=== PATIENT | female | born 1935 ===

== ENCOUNTER 2017-08-02 16:50 | Inpatient (IN) | payer MEDICARE ==
[~2017-08-02] VITALS: Ht 144.8 cm; Wt 50.8 kg
[2017-08-02] MEDS ORDERED: MAGNESIUM HYDROXIDE 30 ML LIQUID UDC PO PRN ×2 (17:00→20:00)
[2017-08-02] MEDS ORDERED: ENOXAPARIN SODIUM 30 MG/0.3 ML DISP.SYRIN SQ SCH (17:00)
[2017-08-02] MEDS ORDERED: ZOLP5TAB2 PO (17:38)
[2017-08-02] MEDS ORDERED: ENOX40DI SQ (17:38)
[2017-08-02] MEDS ORDERED: MAGN400O6 PO (17:38)
[2017-08-02] MEDS ORDERED: SIMV20TA6 PO (17:38)
[2017-08-02] MEDS ORDERED: DOCU-141 PO (17:38)
[2017-08-02] MEDS ORDERED: ACET-73 PO (17:38)
[2017-08-02] MEDS ORDERED: TRAM50TA2 PO (17:38)
[2017-08-02] MEDS ORDERED: AMLO2.5T PO (17:38)
--- NOTE | 2017-08-02 19:45 | NUR ---
Received pt in bed, appearing to be asleep but easily arousable to verbal stimuli and light touch. No acute distress noted. Denies pain or discomfort at this time. All safety measures and fall precautions maintained. Call light and all personal belongings within reach. Will continue to monitor.
[2017-08-02 19:59] VITALS: BP 130/73
[2017-08-02] MEDS ORDERED: ZOLPIDEM 5 MG TABLET PO PRN (20:00)
[2017-08-02] MEDS ORDERED: TRAMADOL HCL 50 MG TABLET PO PRN (20:00)
[2017-08-02] MEDS ORDERED: ACETAMINOPHEN ES 500 MG TABLET PO PRN (20:00)
[2017-08-02] MEDS: SIMVASTATIN 20 MG TABLET PO SCH (20:47)
[2017-08-02] MEDS: DOCUSATE SODIUM 100 MG CAPSULE PO SCH (20:47)
[2017-08-02] MEDS: ENOXAPARIN SODIUM 40 MG/0.4 ML DISP.SYRIN SQ SCH (20:51)
[2017-08-02] MEDS ORDERED: ENOXAPARIN SODIUM 40 MG/0.4 ML DISP.SYRIN SQ SCH (21:00)
[2017-08-02] MEDS ORDERED: SIMVASTATIN 20 MG TABLET PO SCH (21:00)
[2017-08-02] MEDS ORDERED: DOCUSATE SODIUM 100 MG CAPSULE PO SCH (21:00)
[2017-08-03 07:10] LABS: BASOPHILS % (AUTO) 0.6 % (0.0-2.0); EOSINOPHILS # (AUTO) 0.1 K/uL (0.0-0.7); EOSINOPHILS % (AUTO) 1.6 % (0.0-7.0); HEMATOCRIT 31.7 % (36.7-47.1); HEMOGLOBIN 10.9 g/dL (12.5-16.3); LYMPHOCYTES # (AUTO) 1.5 K/uL (20.0-40.0); LYMPHOCYTES % (AUTO) 21.7 % (20.5-51.5); MEAN CORPUSCULAR HEMOGLOBIN 29.9 uug (23.8-33.4); MEAN CORPUSCULAR HGB CONC 34 g/dL (32.5-36.3); MEAN CORPUSCULAR VOLUME 87.3 fL (73.0-96.2); MONOCYTES # (AUTO) 0.9 K/uL (2.0-10.0); MONOCYTES % (AUTO) 12.6 % (0.0-11.0); NEUTROPHILS # (AUTO) 4.4 K/uL (1.8-8.9); NEUTROPHILS % (AUTO) 63.5 % (38.5-71.5); PLATELET COUNT (AUTO) 228 K/uL (152-348); RED BLOOD CELL COUNT(AUTO) 3.63 MIL/uL (4.06-5.63)
[2017-08-03 07:30] VITALS: BP 117/62
[2017-08-03 07:42] LABS: CARBON DIOXIDE 30 mmol/L (21-32); CHLORIDE 98 mmol/L (98-107); CHOLESTEROL 145 mg/dL (<200); CREATININE 0.8 mg/dL (0.6-1.3); GLUCOSE 102 mg/dL (74-106); HDL CHOLESTEROL 65 mg/dL (40-60); MAGNESIUM 2.2 mg/dL (1.8-2.4); PHOSPHOROUS 3.7 mg/dL (2.5-4.9); TRIGLYCERIDES 49 MG/DL (30-150); UREA NITROGEN, BLOOD 15 mg/dL (7-18)
[2017-08-03] MEDS: AMLODIPINE 2.5 MG TABLET PO SCH (08:57)
[2017-08-03] MEDS: TRAMADOL HCL 50 MG TABLET PO PRN (08:57)
[2017-08-03] MEDS ORDERED: AMLODIPINE 2.5 MG TABLET PO SCH (09:00)
--- NOTE | 2017-08-03 18:44 | NUR ---
pt stable throughout the day. given tylenol for pain. no signs of acute distress during shfit. no new orders. will endorse to night stocker nurse.
--- NOTE | 2017-08-03 19:45 | NUR ---
Received pt on bed alert, awake and oriented x3. Able to make needs known. Pleasant, calm and cooperative to care. No apparent distress noted. No complaints of pain or discomfort. All due meds given as ordered and well tolerated. Vital signs stable. Safety and fall precautions observed and maintained. Call light within reach. All needs met
[2017-08-03 20:37] VITALS: BP 131/77
[2017-08-03] MEDS: DOCUSATE SODIUM 100 MG CAPSULE PO SCH (20:51)
[2017-08-03] MEDS: SIMVASTATIN 20 MG TABLET PO SCH (20:51)
[2017-08-03] MEDS: ENOXAPARIN SODIUM 40 MG/0.4 ML DISP.SYRIN SQ SCH (20:55)
[2017-08-04] MEDS: TRAMADOL HCL 50 MG TABLET PO PRN ×2 (00:07→13:38)
[2017-08-04] MEDS ORDERED: METHYL SALICYLATE/MENTHOL CREAM 28 GM TUBE TOP PRN ×2 (00:30→07:15)
[2017-08-04 07:30] VITALS: BP 115/76
[2017-08-04] MEDS: AMLODIPINE 2.5 MG TABLET PO SCH (08:14)
--- NOTE | 2017-08-04 19:50 | NUR ---
Received pt in bed, AAO x 4 on her ipad. No acute distress noted. Verbally responsive and able to make needs known. Denies pain or discomfort at this time. All safety measures and fall precautions maintained. Call light and all personal belongings within reach. Will continue to monitor.
[2017-08-04] MEDS: DOCUSATE SODIUM 100 MG CAPSULE PO SCH (21:01)
[2017-08-04] MEDS: SIMVASTATIN 20 MG TABLET PO SCH (21:01)
[2017-08-04] MEDS: ENOXAPARIN SODIUM 40 MG/0.4 ML DISP.SYRIN SQ SCH (21:02)
[2017-08-04 22:00] VITALS: BP 107/50
[2017-08-04] MEDS: ZOLPIDEM 5 MG TABLET PO PRN (22:18)
--- NOTE | 2017-08-05 07:40 | NUR ---
Received pt in bed, appearing to be asleep. No acute distress noted. Denies pain or discomfort at this time. All safety measures and fall precautions maintained. Call light and all personal belongings within reach. Will continue to monitor.
[2017-08-05 08:03] VITALS: BP 135/77
[2017-08-05] MEDS: AMLODIPINE 2.5 MG TABLET PO SCH (08:07)
[2017-08-05] MEDS: TRAMADOL HCL 50 MG TABLET PO PRN (09:13)
[2017-08-05 19:30] VITALS: BP 158/66
[2017-08-05] MEDS: DOCUSATE SODIUM 100 MG CAPSULE PO SCH (21:00)
[2017-08-05] MEDS: ENOXAPARIN SODIUM 40 MG/0.4 ML DISP.SYRIN SQ SCH (21:06)
[2017-08-05] MEDS: SIMVASTATIN 20 MG TABLET PO SCH (21:08)
[2017-08-05] MEDS: ZOLPIDEM 5 MG TABLET PO PRN (21:08)
[2017-08-05] MEDS ORDERED: LOPERAMIDE HCL 2 MG CAPSULE PO PRN (21:15)
--- NOTE | 2017-08-06 06:30 | NUR ---
Pt alert awake in no acute distress. Able to void in diaper without difficulty. No increased diarrhea present. No s/s of infection to surgical site. Able to make needs known. Will continue to monitor. Call light placed within reach.
[2017-08-06 07:09] VITALS: BP 108/60
--- NOTE | 2017-08-06 07:30 | NUR ---
Received pt in bed,awake. No acute distress noted. Denies pain or discomfort at this time. All safety measures and fall precautions maintained. Call light and all personal belongings within reach. Will continue to monitor.
[2017-08-06] MEDS: AMLODIPINE 2.5 MG TABLET PO SCH (08:18)
[2017-08-06] MEDS: TRAMADOL HCL 50 MG TABLET PO PRN (13:21)
[2017-08-06] MEDS: DOCUSATE SODIUM 100 MG CAPSULE PO SCH (21:05)
[2017-08-06] MEDS: ENOXAPARIN SODIUM 40 MG/0.4 ML DISP.SYRIN SQ SCH (21:05)
[2017-08-06] MEDS: SIMVASTATIN 20 MG TABLET PO SCH (21:05)
[2017-08-06 21:09] VITALS: BP 116/58
[2017-08-06] MEDS: ZOLPIDEM 5 MG TABLET PO PRN (23:16)
[2017-08-07 07:12] VITALS: BP 135/72
--- NOTE | 2017-08-07 07:30 | NUR ---
Received pt in bed, appearing to be asleep. No acute distress noted. . All safety measures and fall precautions maintained. Call light and all personal belongings within reach. Will continue to monitor.
[2017-08-07] MEDS: AMLODIPINE 2.5 MG TABLET PO SCH (08:14)
[2017-08-07] MEDS: ACETAMINOPHEN 325 MG TABLET PO PRN ×2 (09:40→15:14)
--- NOTE | 2017-08-07 11:00 | NUR ---
I agree Addendum: 08/07/17 at 1100 by REHAN SCHNEIDER OT Amended: Links added.
--- NOTE | 2017-08-07 11:01 | NUR ---
I agree Addendum: 08/07/17 at 1101 by REHAN SCHNEIDER OT Amended: Links added.
[2017-08-07] MEDS: GUAIFENESIN/DEXTROMETHORPHAN 5 ML UDC PO PRN ×2 (15:14→21:22)
--- NOTE | 2017-08-07 20:00 | NUR ---
RECEIVED PATIENT AWAKE IN BED. A/O X4. DENIES PAIN OR DISCOMFORT. NO RESP. DISTRESS NOTED. ON RA SATING WELL. DRESSING NOTED TO RIGHT HIP, C/D/I. PATIENT AMBULATES WELL TO BATHROOM WITH FWW. VS WNL. BED ALARM ON. CALL LIGHT IN REACH. ALL NEEDS ATTENDED. WILL CONTINUE TO MONITOR.
[2017-08-07] MEDS: DOCUSATE SODIUM 100 MG CAPSULE PO SCH (20:26)
[2017-08-07] MEDS: SIMVASTATIN 20 MG TABLET PO SCH (20:26)
[2017-08-07] MEDS: ENOXAPARIN SODIUM 40 MG/0.4 ML DISP.SYRIN SQ SCH (20:29)
[2017-08-07 20:53] VITALS: BP 141/67
[2017-08-07] MEDS: ZOLPIDEM 5 MG TABLET PO PRN (22:26)
[2017-08-08] MEDS: TRAMADOL HCL 50 MG TABLET PO PRN ×3 (00:42→22:48)
[2017-08-08] MEDS: ACETAMINOPHEN 325 MG TABLET PO PRN ×3 (03:43→15:12)
[2017-08-08] MEDS: GUAIFENESIN/DEXTROMETHORPHAN 5 ML UDC PO PRN ×3 (05:32→21:22)
--- NOTE | 2017-08-08 06:37 | NUR ---
PATIENT AWAKE IN BED. SLEPT AT INTERVALS. DENIES PAIN OR ANY NEED FOR PAIN MEDICATION AT THIS TIME. ICE BAG APPLIED TO RIGHT KNEE REQUESTED PER PATIENT. BED ALARM ON. CALL LIGHT IN REACH. ALL NEEDS ATTENDED. WILL CONTINUE TO MONITOR.
[2017-08-08 08:00] VITALS: BP 116/53
[2017-08-08] MEDS: AMLODIPINE 2.5 MG TABLET PO SCH (08:10)
--- NOTE | 2017-08-08 14:20 | NUR ---
PT IS WITH HER FAMILY ,NO C/O PAIN NOTED V/S ARE STABLE
[2017-08-08] MEDS ORDERED: BISACODYL 5 MG TABLET.DR PO PRN (19:30)
--- NOTE | 2017-08-08 19:45 | NUR ---
received pt lying comfortably with HOB elevated, alert, awake and oriented x3 with no signs/symptoms of distress. Denies pain. Complained of cough, PRN robitussin will be given. Side rails up x2. Bed locked and in lowest position. Call light within reach. All needs attended.
[2017-08-08] MEDS: DOCUSATE SODIUM 100 MG CAPSULE PO SCH (20:05)
[2017-08-08] MEDS: SIMVASTATIN 20 MG TABLET PO SCH (20:05)
[2017-08-08] MEDS: ENOXAPARIN SODIUM 40 MG/0.4 ML DISP.SYRIN SQ SCH (20:40)
[2017-08-08 21:41] VITALS: BP 130/70
[2017-08-09] MEDS: ACETAMINOPHEN 325 MG TABLET PO PRN ×2 (00:45→10:10)
[2017-08-09] MEDS: TRAMADOL HCL 50 MG TABLET PO PRN ×3 (05:47→20:41)
--- NOTE | 2017-08-09 06:05 | NUR ---
patient slept well throughout the shift with no apparent distress noted. Complained of left hip pain, medicated with tramadol PRN, verbalization of relief noted. No SOB noted. Assisted to the bathroom as needed. Kept clean, dry and comfortable. Call light within reach. All needs attended.
[2017-08-09 07:27] LABS: CARBON DIOXIDE 28 mmol/L (21-32); CHLORIDE 101 mmol/L (98-107); GLUCOSE 96 mg/dL (74-106); POTASSIUM 3.6 mmol/L (3.5-5.1); UREA NITROGEN, BLOOD 15 mg/dL (7-18)
[2017-08-09 07:29] LABS: BASOPHILS # (AUTO) 0.1 K/uL (0.0-8.0); BASOPHILS % (AUTO) 1.4 % (0.0-2.0); EOSINOPHILS # (AUTO) 0.2 K/uL (0.0-0.7); EOSINOPHILS % (AUTO) 3.4 % (0.0-7.0); HEMATOCRIT 31.8 % (31.2-41.9); HEMOGLOBIN 10.8 g/dL (10.9-14.3); LYMPHOCYTES # (AUTO) 0.9 K/uL (20.0-40.0); LYMPHOCYTES % (AUTO) 18.1 % (20.5-51.5); MEAN CORPUSCULAR HEMOGLOBIN 29.7 uug (24.7-32.8); MEAN CORPUSCULAR HGB CONC 34 g/dL (32.3-35.6); MEAN CORPUSCULAR VOLUME 87.5 fL (75.5-95.3); MONOCYTES # (AUTO) 0.8 K/uL (2.0-10.0); MONOCYTES % (AUTO) 15.7 % (0.0-11.0); NEUTROPHILS % (AUTO) 61.4 % (38.5-71.5); PLATELET COUNT (AUTO) 277 K/uL (179-408); RED BLOOD CELL COUNT(AUTO) 3.63 MIL/uL (3.63-4.92); WHITE BLOOD COUNT (AUTO) 4.8 K/uL (3.8-11.8)
--- NOTE | 2017-08-09 08:07 | NUR ---
pt refused the chest x ray md made aware.
[2017-08-09] MEDS: AMLODIPINE 2.5 MG TABLET PO SCH (08:08)
[2017-08-09 08:33] LABS: BASOPHILS % (MANUAL) 1 % (0-2); EOSINOPHILS % (MANUAL) 3 % (0-8); LYMPHOCYTES % (MANUAL) 18 % (20-40); MONOCYTES % (MANUAL) 16 % (2-10); NEUTROPHILS % (MANUAL) 62 % (42-75)
[2017-08-09 08:43] VITALS: BP 132/62
[2017-08-09] MEDS: GUAIFENESIN/DEXTROMETHORPHAN 5 ML UDC PO PRN (15:08)
--- NOTE | 2017-08-09 16:53 | NUR ---
INTERDISCIPLINARY TEAM CONFERENCE
--- NOTE | 2017-08-09 20:00 | NUR ---
Received pt lying on bed alert, awake and oriented x3. Able to make needs known. No acute distress noted. Complained of right hip pain, PRN tramadol given. Kept clean, dry and comfortable. Call light within reach. Safety and fall precautions observed and maintained. All needs attended. Will continue to monitor.
--- NOTE | 2017-08-09 20:00 | NUR ---
Received pt sitting on a wheelchair with family at bedside, alert, awake and oriented x3. Pleasant, calm and cooperative to care. No acute distress noted. No SOB. Assisted to the bathroom as needed. encouraged to verbalize needs and concerns. Call light within reach. All needs attended. Addendum: 08/09/17 at 2203 by ANEUDY DEL VALLE RN Documentation not for this pt.
[2017-08-09 20:31] VITALS: BP 136/69
[2017-08-09] MEDS: SIMVASTATIN 20 MG TABLET PO SCH (20:40)
[2017-08-09] MEDS: DOCUSATE SODIUM 100 MG CAPSULE PO SCH (20:40)
[2017-08-09] MEDS: ENOXAPARIN SODIUM 40 MG/0.4 ML DISP.SYRIN SQ SCH (20:44)
[2017-08-09] MEDS ORDERED: FLUTICASONE/SALMETEROL 250/50 INHALER INH SCH (21:00)
--- NOTE | 2017-08-09 21:00 | NUR ---
Pt refused bowel regimen, dulcolax PRN and stated "I wanna take it tomorrow morning 'cause I dont wanna get up during the night just to go to the bathroom". Explained risks and benefits but still pt refused. Will endorse to day shift nurse.
[2017-08-09] MEDS: predniSONE 20 MG TABLET PO SCH (21:27)
[2017-08-10] MEDS ORDERED: IPRATROPIUM/ALBUTEROL SULFATE 14.7 GM INHALER INH SCH
[2017-08-10] MEDS: TRAMADOL HCL 50 MG TABLET PO PRN ×3 (00:26→20:12)
[2017-08-10] MEDS: IPRATROPIUM BROMIDE 0.5 MG/2.5 ML NEBU NEB SCH ×5 (00:55→19:30)
[2017-08-10] MEDS: ALBUTEROL SULFATE 2.5 MG/ 0.5 ML NEBU NEB SCH ×5 (00:55→19:30)
--- NOTE | 2017-08-10 00:56 | NUR ---
Pt awake. No respiratory distress noted. Pt refused HHN tx. JOHN Salinas notified.
[2017-08-10] MEDS: BISACODYL 10 MG SUPP.RECT RC PRN (07:37)
[2017-08-10] MEDS: predniSONE 20 MG TABLET PO SCH (08:09)
[2017-08-10] MEDS: AMLODIPINE 2.5 MG TABLET PO SCH (08:09)
[2017-08-10] MEDS: FLUTICASONE/VILANTEROL 1 EACH BLST.W.DEV INH SCH (08:52)
[2017-08-10 08:55] VITALS: BP 128/76
[2017-08-10] MEDS: GUAIFENESIN/DEXTROMETHORPHAN 5 ML UDC PO PRN (16:19)
--- NOTE | 2017-08-10 20:00 | NUR ---
Received pt lying on bed alert, awake and oriented x3 with no signs/symptoms of distress. Complained of right hip pain, PRN tramadol given. Kept clean, dry and comfortable. Assisted to the bathroom as needed. Call light within reach. Safety and fall precautions observed and maintained. encouraged to verbalize needs and concerns and to call for assistance if needed. All needs attended. Will continue to monitor.
[2017-08-10] MEDS: SIMVASTATIN 20 MG TABLET PO SCH (20:12)
[2017-08-10] MEDS: DOCUSATE SODIUM 100 MG CAPSULE PO SCH (20:12)
[2017-08-10 20:47] VITALS: BP 156/70
[2017-08-10] MEDS: ENOXAPARIN SODIUM 40 MG/0.4 ML DISP.SYRIN SQ SCH (20:53)
[2017-08-11] MEDS: TRAMADOL HCL 50 MG TABLET PO PRN ×4 (00:35→20:33)
[2017-08-11] MEDS: IPRATROPIUM BROMIDE 0.5 MG/2.5 ML NEBU NEB SCH ×4 (00:48→18:52)
[2017-08-11] MEDS: ALBUTEROL SULFATE 2.5 MG/ 0.5 ML NEBU NEB SCH ×4 (00:48→18:52)
[2017-08-11] MEDS: ZOLPIDEM 5 MG TABLET PO PRN (01:59)
[2017-08-11] MEDS: predniSONE 20 MG TABLET PO SCH (08:06)
[2017-08-11] MEDS: AMLODIPINE 2.5 MG TABLET PO SCH (08:06)
[2017-08-11] MEDS: FLUTICASONE/VILANTEROL 1 EACH BLST.W.DEV INH SCH (08:07)
[2017-08-11] MEDS: GUAIFENESIN/DEXTROMETHORPHAN 5 ML UDC PO PRN ×2 (08:44→20:32)
[2017-08-11 08:58] VITALS: BP 123/70
[2017-08-11] MEDS: BISACODYL 10 MG SUPP.RECT RC PRN (11:06)
--- NOTE | 2017-08-11 19:50 | NUR ---
RECEIVED PATIENT AWAKE IN BED WATCHING TV. A/O X4. VERY PLEASANT WHEN APPROACHED. C/O MILD DISCOMFORT IN RIGHT HIP, BUT DENIES THE NEED FOR ANY PAIN MEDICATION AT THIS TIME. VS WNL. NO RESP. DISTRESS NOTED. BED ALARM ON. CALL LIGHT IN REACH. ALL NEEDS ATTENDED. WILL CONTINUE TO MONITOR AND ASSESS.
[2017-08-11 20:00] VITALS: BP_SYST 110; BP_SYST 124; BP_DIAS 60; BP_DIAS 77
[2017-08-11] MEDS: ENOXAPARIN SODIUM 40 MG/0.4 ML DISP.SYRIN SQ SCH (20:32)
[2017-08-11] MEDS: DOCUSATE SODIUM 100 MG CAPSULE PO SCH (20:33)
[2017-08-11] MEDS: SIMVASTATIN 20 MG TABLET PO SCH (20:34)
[2017-08-12] MEDS: TRAMADOL HCL 50 MG TABLET PO PRN (00:25)
[2017-08-12] MEDS: IPRATROPIUM BROMIDE 0.5 MG/2.5 ML NEBU NEB SCH ×5 (01:30→19:39)
[2017-08-12] MEDS: ALBUTEROL SULFATE 2.5 MG/ 0.5 ML NEBU NEB SCH ×5 (01:30→19:39)
[2017-08-12] MEDS: ZOLPIDEM 5 MG TABLET PO PRN (02:15)
--- NOTE | 2017-08-12 02:15 | NUR ---
PATIENT AWAKE IN BED, UNABLE TO SLEEP. REQUESTING SLEEPING PILL. PATIENT GIVEN AMBIEN 5MG PO PRN FOR SLEEP. WILL CONTINUE TO MONITOR AND ASSESS.
--- NOTE | 2017-08-12 03:15 | NUR ---
PATIENT ASLEEP. RESTING WELL. NO S/S OF ANY SOB. CALL LIGHT IN REACH. BED ALARM ON. WILL CONTINUE TO MONITOR AND ASSESS.
--- NOTE | 2017-08-12 06:35 | NUR ---
PATIENT ASLEEP IN BED. RESTING WELL. NO S/S OF ANY PAIN OR DISCOMFORT. NO RESP. DISTRESS NOTED. CALL LIGHT IN REACH. BED ALARM ON. WILL CONTINUE TO MONITOR AND ASSESS.
[2017-08-12] MEDS: FLUTICASONE/VILANTEROL 1 EACH BLST.W.DEV INH SCH (09:00)
[2017-08-12] MEDS: predniSONE 20 MG TABLET PO SCH (09:01)
[2017-08-12] MEDS: AMLODIPINE 2.5 MG TABLET PO SCH (09:01)
[2017-08-12 10:16] VITALS: BP 130/56
[2017-08-12] MEDS: ACETAMINOPHEN 325 MG TABLET PO PRN ×2 (12:02→20:18)
--- NOTE | 2017-08-12 16:36 | NUR ---
SBAR report received, board updated. Pt assessed, no acute distress or pain noted at this time. Pt reports pain managed successfully by PRN Tylenol. Pt compliant with all routinely scheduled medication administration. Bed in locked and lowest position with side rails up x2. All safety and comfort measures implemented. Call light placed within reach. Will continue to monitor.
--- NOTE | 2017-08-12 19:35 | NUR ---
RECEIVED PATIENT AWAKE IN BED WATCHING TV. A/O X4. VERY PLEASANT WHEN APPROACHED. DENIES PAIN AT THIS TIME. VS WNL. NO RESP. DISTRESS NOTED. BED ALARM ON. CALL LIGHT IN REACH. ALL NEEDS ATTENDED. WILL CONTINUE TO MONITOR AND ASSESS.
--- NOTE | 2017-08-12 19:39 | NUR ---
PT IS REFUSING HHN TX AT THIS TIME. JOHN ROWE HAS BEEN NOTIFIED. PT IS ON ROOM AIR, NO RESP. DISTRESS NOTED.
[2017-08-12] MEDS: DOCUSATE SODIUM 100 MG CAPSULE PO SCH (20:18)
[2017-08-12] MEDS: SIMVASTATIN 20 MG TABLET PO SCH (20:18)
[2017-08-12] MEDS: GUAIFENESIN/DEXTROMETHORPHAN 5 ML UDC PO PRN (20:18)
[2017-08-12] MEDS: ENOXAPARIN SODIUM 40 MG/0.4 ML DISP.SYRIN SQ SCH (20:20)
[2017-08-12 20:56] VITALS: BP 146/72
[2017-08-13] MEDS: ZOLPIDEM 5 MG TABLET PO PRN ×2 (00:33→22:02)
[2017-08-13] MEDS: IPRATROPIUM BROMIDE 0.5 MG/2.5 ML NEBU NEB SCH ×4 (01:30→19:15)
[2017-08-13] MEDS: ALBUTEROL SULFATE 2.5 MG/ 0.5 ML NEBU NEB SCH ×4 (01:30→19:15)
[2017-08-13] MEDS: GUAIFENESIN/DEXTROMETHORPHAN 5 ML UDC PO PRN (05:59)
--- NOTE | 2017-08-13 06:00 | NUR ---
PATIENT AWAKE IN BED. NON-PRODUCTIVE COUGH NOTED. PATIENT GIVEN ROBITUSSIN PO PRN FOR COUGH. SLEPT WELL THROUGHOUT THE NIGHT. NO C/O PAIN OR DISCOMFORT AT THIS TIME. BED ALARM ON. CALL LIGHT IN REACH. ALL NEEDS ATTENDED, WILL CONTINUE TO MONITOR AND ASSESS.
[2017-08-13] MEDS: FLUTICASONE/VILANTEROL 1 EACH BLST.W.DEV INH SCH (08:04)
[2017-08-13] MEDS: predniSONE 20 MG TABLET PO SCH (08:04)
[2017-08-13] MEDS: AMLODIPINE 2.5 MG TABLET PO SCH (08:05)
[2017-08-13] MEDS: ACETAMINOPHEN 325 MG TABLET PO PRN (11:49)
[2017-08-13 12:59] VITALS: BP 143/81
--- NOTE | 2017-08-13 13:22 | NUR ---
PT CONT TO REFUSE HHN TX'S. PT ON RA, NO DISTRESS NOTED. WILL CONT TO CHECK PT ON NEEDED BASIS.
--- NOTE | 2017-08-13 20:00 | NUR ---
PT NOTED TO BE AMBULATING AROUND THE HALLWAY WITH WALKER, NOTED TO HAVE STEADY GAIT. NO DISTRESS NOTED AT THIS TIME. PT NOTED TO BE AAO X 4. SAFETY MEASURES ENDURED. CALL LIGHT WITHIN REACH. WILL ADMINISTER MEDS ORDERED. WILL CONTINUE TO MONITOR.
[2017-08-13 20:28] VITALS: BP 156/81
[2017-08-13] MEDS: SIMVASTATIN 20 MG TABLET PO SCH (20:52)
[2017-08-13] MEDS: DOCUSATE SODIUM 100 MG CAPSULE PO SCH (20:52)
[2017-08-13] MEDS: ENOXAPARIN SODIUM 40 MG/0.4 ML DISP.SYRIN SQ SCH (20:53)
--- NOTE | 2017-08-13 21:00 | NUR ---
PT BACK IN BED AND NOTED TO BE RESTING AT THIS TIME. NO DISTRESS NOTED. WILL CONTINUE TO MONITOR.
[2017-08-14] MEDS: ALBUTEROL SULFATE 2.5 MG/ 0.5 ML NEBU NEB SCH ×3 (00:33→12:36)
[2017-08-14] MEDS: IPRATROPIUM BROMIDE 0.5 MG/2.5 ML NEBU NEB SCH ×3 (00:33→12:36)
[2017-08-14] MEDS: TRAMADOL HCL 50 MG TABLET PO PRN ×2 (03:21→08:56)
--- NOTE | 2017-08-14 05:46 | NUR ---
Pt is noted to be resting at this time, easily arousable to verbal and tactile stimuli. No s/s of distress throughout shift. Pain management provided as ordered. Call light within reach. Bed in low, locked position. Will continue to monitor.
--- NOTE | 2017-08-14 07:10 | NUR ---
RECEIVED REPORT FROM [employer] SALES CONSULTANT NURSE, PATIENT IN BED AWAKE, NO DISTRESS NOTED, BED IN LOW POSITION. SIDE RAILS UP X2, CALL LIGHT IN REACH.
[2017-08-14 07:30] VITALS: BP 121/72
[2017-08-14 07:38] LABS: BASOPHILS % (AUTO) 0.4 % (0.0-2.0); EOSINOPHILS # (AUTO) 0.1 K/uL (0.0-0.7); EOSINOPHILS % (AUTO) 0.9 % (0.0-7.0); HEMATOCRIT 34.5 % (31.2-41.9); HEMOGLOBIN 11.7 g/dL (10.9-14.3); LYMPHOCYTES # (AUTO) 2.3 K/uL (20.0-40.0); LYMPHOCYTES % (AUTO) 30.5 % (20.5-51.5); MEAN CORPUSCULAR HEMOGLOBIN 29.6 uug (24.7-32.8); MEAN CORPUSCULAR HGB CONC 34 g/dL (32.3-35.6); MEAN CORPUSCULAR VOLUME 87.3 fL (75.5-95.3); MONOCYTES # (AUTO) 0.7 K/uL (2.0-10.0); MONOCYTES % (AUTO) 9.8 % (0.0-11.0); NEUTROPHILS # (AUTO) 4.4 K/uL (1.8-8.9); NEUTROPHILS % (AUTO) 58.4 % (38.5-71.5); RED BLOOD CELL COUNT(AUTO) 3.95 MIL/uL (3.63-4.92)
[2017-08-14 07:44] LABS: PLATELET COUNT (AUTO) 358 K/uL (179-408); WHITE BLOOD COUNT (AUTO) 7.5 K/uL (3.8-11.8)
[2017-08-14 08:58] VITALS: BP 121/72
[2017-08-14] MEDS: AMLODIPINE 2.5 MG TABLET PO SCH (08:58)
[2017-08-14] MEDS: predniSONE 20 MG TABLET PO SCH (08:58)
[2017-08-14] MEDS: FLUTICASONE/VILANTEROL 1 EACH BLST.W.DEV INH SCH (08:59)
--- NOTE | 2017-08-14 13:20 | NUR ---
PATIENT WAS GIVEN DISCHARGE IN STRUCTIONS, PRESCRIPTIONS, AND ALL BELONGINGS RETRIEVED FROM [facility]. ALL QUESTIONS WERE ANSWERED AND PATIENT WAS PICKED UP BY FAMILY FRIEND. NO DISTRESS NOTED UPON DISCHARGE.
== END 2017-08-14 13:20 | disposition home health service (06) | DRG 559 ==
LOC: EDSEX 16:50
PROVIDERS: ADMIT Physical Medicine & Rehabilitation Pain Medicine; ATTEND Physical Medicine & Rehabilitation Pain Medicine
DX: S72.011D Unspecified intracapsular fracture of right femur, subsequent encounter for closed fracture with routine healing (principal); E43 Unspecified severe protein-calorie malnutrition; D68.59 Other primary thrombophilia; I11.9 Hypertensive heart disease without heart failure; J44.1 Chronic obstructive pulmonary disease with (acute) exacerbation; D63.8 Anemia in other chronic diseases classified elsewhere; I10 Essential (primary) hypertension; K52.1 Toxic gastroenteritis and colitis; I34.0 Nonrheumatic mitral (valve) insufficiency; E78.5 Hyperlipidemia, unspecified; Z96.651 Presence of right artificial knee joint; W10.9XXD Fall (on) (from) unspecified stairs and steps, subsequent encounter; T47.4X5A Adverse effect of other laxatives, initial encounter; Y92.230 Patient room in hospital as the place of occurrence of the external cause; R26.9 Unspecified abnormalities of gait and mobility; Z88.0 Allergy status to penicillin; Z88.2 Allergy status to sulfonamides
CPT/HCPCS: 36415; 70030-TC; 71045; 73502; 83735; 84100; 85025; 92523; 92610; 94640; 97110; 97112; 97116; 97165; 97530; 97535; J1650; J3590; J7512